=== PATIENT | female | born 1960 | race African-American/Black ===

== ENCOUNTER 2017-03-17 18:05 | Emergency (ER) | payer OTHER ==
[2017-03-17] MEDS ORDERED: Fentanyl 100 MCG/2 ML VIAL ONE (18:47)
[2017-03-17] MEDS ORDERED: Ondansetron HCl/PF 4 MG/2 ML Vial ONE (18:48)
[2017-03-17 19:04] LABS: ALT (SGPT) 12 U/L (0-55); AST (SGOT) 12 U/L (5-34); Albumin 3.4 g/dL (3.5-5.0); Alkaline Phosphatase 54 U/L (40-150); Anion Gap 11 mmol/L (10-20); BUN (Urea Nitrogen) 11 mg/dL (9.8-20.1); Bilirubin, Total 0.9 mg/dL (0.2-1.2); Calc. Creatinine Clearance 0 mL/min (70-130); Calcium 8.4 mg/dL (7.8-10.44); Carbon Dioxide 24 mmol/L (22-29); Chloride 108 mmol/L (98-107); Estimated GFR-MDRD 85; Globulin 2.7 g/dL (2.4-3.5); Glucose 100 mg/dL (70-105); Potassium 3.3 mmol/L (3.5-5.1); Protein, Total 6.1 g/dL (6.0-8.3); Sodium 140 mmol/L (136-145)
[2017-03-17 19:04] LABS: Bilirubin Negative (Negative); Blood, Urine Trace (Negative); Clarity Cloudy (Clear); Glucose, Urine (Dipstick) Negative (Negative); Leukocyte Large (Negative); Nitrite Negative (Negative); Protein, Urine (Dipstick) 30 mg/dL (Neg-Trace); Specific Gravity, Urine 1.015 (1.005-1.030); pH, Urine Greater/Equal 9.0 (5.0-9.0)
[2017-03-17 19:09] LABS: Hemoglobin 12.9 g/dL (12.0-16.0); Hypersemented Neutrophil SLIGHT; Lymphocytes 17 % (21-51); MDiff Complete? YES; Mean Corpuscular HGB CONC 31.9 g/dL (32.0-36.0); Mean Corpuscular Volume 94.2 fl (81.0-99.0); Mean Platelet Volume 9.4 fL (7.4-10.4); Monocytes 5 % (0-10); Neutrophil 78 % (42-75); Platelet Count 198 thou/uL (130-400); RBC Distribution Width 12.7 % (11.5-14.5); Red Blood Cell (RBC) Count 4.28 mill/uL (4.20-5.40); White Blood Cell (WBC) Count 14.2 thou/uL (4.8-10.8)
[2017-03-17 19:12] LABS: Bacteria/HPF 2+ HPF (None Seen); Crystals/HPF None Seen HPF (Negative); Hyaline Casts/LPF NONE SEEN LPF (0-3 Hyaline); Other Casts/LPF None Seen LPF (0-3 Hyaline); Oval Fat Bodies/HPF None Seen HPF (None Seen); RBC/HPF 0-3 HPF (0-3); Renal Epithelial None Seen HPF (0-3); Sperm/HPF None Seen HPF (None Seen); Squamous Epithelial None Seen HPF (0-3); Transitional Epithelial NONE SEEN HPF (0-3); Trichomonas/HPF None Seen HPF (None Seen); WBC/HPF 21-50 HPF (0-3); Yeast-All Forms None Seen HPF (None Seen)
[2017-03-17] MEDS ORDERED: cefTRIAXone\\ROCEPHIN 1 GM VIAL ONE (19:18)
--- NOTE | 2017-03-17 19:25 | CT ---
CT ABDOMEN AND PELVIS WITHOUT CONTRAST 03/17/[address] of the abdomen and pelvis was performed for evaluation of generalized flank pain. Axial sl ices were acquired, then coronal reconstructions were done. No oral or IV contrast was given. The lung bases are clear. The liver is slightly generous in size but no internal abnormalities were seen. The spleen, pancreas, adrenal gland and aorta were unremarkable within the limitations of a no ncontrast study. The gallbladder wall does not seem thick. On a few images, I would wonder if there was a tiny bright deisy in it, but not enough that I could confidently diagnose gallstones. An ultra sound would be more sensitive. 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 This makes it look larger than it is, though it still seems la rger than it should be. I would recommend checking the patient's urine to consider the possibility o f pyelonephritis. There was no significant stranding around this kidney, however. The left kidney sh owed no focal lesion. No renal obstruction or renal stones were seen. No ureteral calculi were seen. The bowel gas pattern is nonspecific. There are no inflammatory changes appreciated around bowel or cecum. Some nonspecific fluid filled loops of small bowel are present. No free air or free fluid was seen. CT of the pelvis showed no pelvic masses or free fluid. The uterine fundus seems a little bulky such that I cannot exclude fibroids. Ultrasound would be much more sensitive at evaluating this. IMPRESSION: 1. Malrotated right kidney that may be slightly larger than expected. Consider checking her uri ne to rule out pyelonephritis. 2. Nonspecific bowel gas pattern. 3. Borderline hepatic size. 4. Somewhat bulky uterine fundus. 5. Cannot rule out tiny gallstones, but the finding is truly not definite. POS: HOME
[2017-03-17] MEDS ORDERED: Acetaminophen 500 MG TAB ONE (19:27)
== END 2017-03-17 20:46 | disposition home or self-care (01) ==
LOC: BURERS 18:05
DX: N12 Tubulo-interstitial nephritis, not specified as acute or chronic (principal); G89.29 Other chronic pain; E11.9 Type 2 diabetes mellitus without complications; M06.9 Rheumatoid arthritis, unspecified
CPT/HCPCS: 74176; 80053; 81003; 81015; 83605; 85025; 87077; 87086; 87186; 96361; 96365; 96375; J0696; J2405; J3010

== ENCOUNTER 2017-07-26 12:34 | Emergency (ER) | payer OTHER ==
[2017-07-26] MEDS ORDERED: HYDROcodone/Acetaminophen 5/325 mg Tablet ONE (13:30)
--- NOTE | 2017-07-26 15:42 | CT ---
CT OF THE BRAIN WITHOUT CONTRAST 07/26/[address] was performed for evaluation of headache one month following trauma. The ventricles are normal in size with no shift. No intracranial bleeding or extra-axial hematoma wa s seen. No mass, stroke or edema was seen. The calvarium appears intact. The sphenoid sinus and mast oid air cells are clear. IMPRESSION: No acute intracranial findings. POS: HOME
== END 2017-07-26 13:40 | disposition home or self-care (01) ==
LOC: BURERS 12:34
DX: E11.40 Type 2 diabetes mellitus with diabetic neuropathy, unspecified (principal); I10 Essential (primary) hypertension; M06.9 Rheumatoid arthritis, unspecified; Z79.82 Long term (current) use of aspirin; Z79.899 Other long term (current) drug therapy
CPT/HCPCS: 70450

== ENCOUNTER 2017-10-01 07:38 | Emergency (ER) | payer OTHER | END 2017-10-01 08:39 | disposition home or self-care (01) | LOC: BURERS 07:38 | DX: J01.90 Acute sinusitis, unspecified (principal); J20.9 Acute bronchitis, unspecified; I10 Essential (primary) hypertension; E11.40 Type 2 diabetes mellitus with diabetic neuropathy, unspecified; Z79.899 Other long term (current) drug therapy; Z79.82 Long term (current) use of aspirin | CPT/HCPCS: 99283 ==

== ENCOUNTER 2018-04-25 14:06 | Emergency (ER) | payer OTHER ==
[2018-04-25 14:34] LABS: #Basophils 0.1 thou/uL (0.0-0.2); #Eosinphils 0.1 thou/uL (0.0-0.7); #Lymphocytes 3.4 thou/uL (1.20-3.40); #Monocytes 0.6 thou/uL (0.11-0.59); #Neutrophils 4.3 thou/uL (1.40-6.50); %Basophils 1.5 % (0.0-1.0); %Eosinophils 0.9 % (0.0-10.0); %Lymphocytes 40.4 % (21.0-51.0); %Monocytes 6.6 % (0.0-10.0); %Neutrophils 50.6 % (42.0-75.0); Hemoglobin 12.8 g/dL (12.0-16.0); Mean Corpuscular HGB CONC 34.3 g/dL (32.0-36.0); Mean Corpuscular Hemoglobin 29.7 pg (27.0-31.0); Mean Corpuscular Volume 86.4 fl (81.0-99.0); Mean Platelet Volume 7.4 fL (7.4-10.4); Platelet Count 242 thou/uL (130-400); RBC Distribution Width 11.8 % (11.5-14.5); White Blood Cell (WBC) Count 8.4 thou/uL (4.8-10.8)
[2018-04-25 14:51] LABS: Albumin 3.6 g/dL (3.5-5.0); Globulin 2.5 g/dL (2.4-3.5); Protein, Total 6.1 g/dL (6.0-8.3)
[2018-04-25 14:53] LABS: Troponin I Less than 0.010 ng/mL (< 0.028)
[2018-04-25 14:55] LABS: Potassium 2.9 mmol/L (3.5-5.1)
[2018-04-25] MEDS ORDERED: Potassium Chloride 20 MEQ TAB ONE (15:01)
--- NOTE | 2018-04-25 16:57 | RAD ---
PORTABLE CHEST: Date: 04/25/18 An AP portable film at 1412 hours is compared with the 08/12/16 study. FINDINGS: The heart is stable in size and appears normal. There is no infiltrate, effusion, or vascular congest ion. The lungs are clear. Trachea is midline. IMPRESSION: No acute thoracic finding. POS: HOME
== END 2018-04-25 15:12 | disposition home or self-care (01) ==
LOC: BURERS 14:06
DX: F43.0 Acute stress reaction (principal); E87.6 Hypokalemia; R07.89 Other chest pain; I10 Essential (primary) hypertension; M06.9 Rheumatoid arthritis, unspecified; E11.40 Type 2 diabetes mellitus with diabetic neuropathy, unspecified; Z79.52 Long term (current) use of systemic steroids; Z79.82 Long term (current) use of aspirin; Z79.899 Other long term (current) drug therapy; Z79.891 Long term (current) use of opiate analgesic
CPT/HCPCS: 36415; 71045; 80053; 82553; 83690; 83880; 84484; 85025; 93005; 94760

== ENCOUNTER 2018-06-21 11:30 | Emergency (ER) | payer OTHER ==
[2018-06-21] MEDS ORDERED: traMADol HCl 50 MG TAB ONE (11:50)
[2018-06-21] MEDS ORDERED: Amoxicillin/Potassium Clav 875 MG TAB ONE (11:50)
== END 2018-06-21 12:02 | disposition home or self-care (01) ==
LOC: BURERS 11:30
DX: J01.90 Acute sinusitis, unspecified (principal); I10 Essential (primary) hypertension; E11.40 Type 2 diabetes mellitus with diabetic neuropathy, unspecified; Z79.82 Long term (current) use of aspirin; Z79.899 Other long term (current) drug therapy
CPT/HCPCS: 99283

== ENCOUNTER 2019-01-18 17:06 | Emergency (ER) | payer OTHER ==
[2019-01-18] MEDS ORDERED: traMADol HCl 50 MG TAB ONE (18:07)
--- NOTE | 2019-01-18 20:09 | RAD ---
LEFT SHOULDER THREE VIEWS: 01/18/19 No fracture, dislocation, or AC joint widening was seen. There is no periarticular calcification. IMPRESSION: No acute finding. POS: HOME
== END 2019-01-18 18:10 | disposition home or self-care (01) ==
LOC: BURERS 17:06
DX: S43.422A Sprain of left rotator cuff capsule, initial encounter (principal); E11.40 Type 2 diabetes mellitus with diabetic neuropathy, unspecified; I10 Essential (primary) hypertension; Z79.899 Other long term (current) drug therapy; Z79.82 Long term (current) use of aspirin; X50.9XXA Other and unspecified overexertion or strenuous movements or postures, initial encounter

== ENCOUNTER 2019-03-23 13:04 | Emergency (ER) | payer OTHER ==
[2019-03-23] MEDS ORDERED: predniSONE 20 MG TAB ONE (13:24)
[2019-03-23 13:39] LABS: #Eosinphils 0.1 thou/uL (0.0-0.7); #Lymphocytes 1.7 thou/uL (1.20-3.40); #Monocytes 0.3 thou/uL (0.11-0.59); #Neutrophils 2.5 thou/uL (1.40-6.50); %Basophils 0.9 % (0.0-1.0); %Lymphocytes 36.7 % (21.0-51.0); %Monocytes 6.3 % (0.0-10.0); %Neutrophils 54.2 % (42.0-75.0); Hemoglobin 13.2 g/dL (12.0-16.0); Mean Corpuscular HGB CONC 31.1 g/dL (32.0-36.0); Mean Corpuscular Hemoglobin 29.6 pg (27.0-31.0); Mean Platelet Volume 8.2 fL (7.4-10.4); Platelet Count 215 thou/uL (130-400); RBC Distribution Width 12.4 % (11.5-14.5); Red Blood Cell (RBC) Count 4.47 mill/uL (4.20-5.40); White Blood Cell (WBC) Count 4.5 thou/uL (4.8-10.8)
[2019-03-23 13:52] LABS: Clarity Cloudy (Clear); Glucose, Urine (Dipstick) Negative (Negative); Leukocyte Moderate (Negative); Nitrite Negative (Negative); Protein, Urine (Dipstick) Negative (Neg-Trace); Urobilinogen 0.2 mg/dL (0.2-1.0); pH, Urine 6.5 (5.0-9.0)
[2019-03-23 13:53] LABS: Bacteria/HPF 2+ HPF (None Seen); Bilirubin Negative (Negative); Blood, Urine Trace (Negative); RBC/HPF 0-3 HPF (0-3); Squamous Epithelial 0-3 HPF (0-3)
[2019-03-23 13:54] LABS: ALT (SGPT) 9 U/L (8-55); AST (SGOT) 12 U/L (5-34); Albumin 3.8 g/dL (3.5-5.0); Alkaline Phosphatase 66 U/L (40-150); Anion Gap 9 mmol/L (10-20); BUN (Urea Nitrogen) 14 mg/dL (9.8-20.1); Bilirubin, Total 0.2 mg/dL (0.2-1.2); Calc. Creatinine Clearance 0 mL/min (70-130); Calcium 9.7 mg/dL (7.8-10.44); Carbon Dioxide 31 mmol/L (22-29); Chloride 105 mmol/L (98-107); Estimated GFR-MDRD 79; Globulin 2.7 g/dL (2.4-3.5); Glucose 89 mg/dL (70-105); Potassium 3.6 mmol/L (3.5-5.1); Protein, Total 6.5 g/dL (6.0-8.3); Sodium 141 mmol/L (136-145)
== END 2019-03-23 14:15 | disposition home or self-care (01) ==
LOC: BURERS 13:04
DX: N39.0 Urinary tract infection, site not specified (principal); E11.9 Type 2 diabetes mellitus without complications; I10 Essential (primary) hypertension; Z79.899 Other long term (current) drug therapy; Z79.82 Long term (current) use of aspirin
CPT/HCPCS: 36415; 80053; 81003; 81015; 83605; 84443; 85025; 87804; 99283; J7512

== ENCOUNTER 2019-07-05 13:29 | Emergency (ER) | payer OTHER | END 2019-07-05 13:42 | disposition home or self-care (01) | LOC: BURERS 13:29 | DX: J06.9 Acute upper respiratory infection, unspecified (principal); E11.9 Type 2 diabetes mellitus without complications; I10 Essential (primary) hypertension; Z79.899 Other long term (current) drug therapy; Z79.82 Long term (current) use of aspirin | CPT/HCPCS: 99281 ==

== ENCOUNTER 2019-12-14 12:17 | Observation (INO) | payer OTHER ==
[2019-12-14] MEDS ORDERED: Morphine 4 MG/ML VIAL ONE ×2 (12:43→14:54)
[2019-12-14 12:55] LABS: Hemoglobin 13.3 g/dL (12.0-16.0); Mean Corpuscular HGB CONC 31.7 g/dL (32.0-36.0); Mean Corpuscular Hemoglobin 30.5 pg (27.0-31.0); Mean Corpuscular Volume 96.2 fL (78.0-98.0); Mean Platelet Volume 8.8 fL (7.4-10.4); Platelet Count 218 thou/uL (130-400); RBC Distribution Width 12.8 % (11.5-14.5); Red Blood Cell (RBC) Count 4.36 mill/uL (4.20-5.40); White Blood Cell (WBC) Count 9.3 thou/uL (4.8-10.8)
[2019-12-14 13:05] LABS: ALT (SGPT) 28 U/L (8-55); AST (SGOT) 53 U/L (5-34); Albumin 4.1 g/dL (3.5-5.0); Alkaline Phosphatase 71 U/L (40-110); Anion Gap 14 mmol/L (10-20); BUN (Urea Nitrogen) 12 mg/dL (9.8-20.1); Bilirubin, Total 0.5 mg/dL (0.2-1.2); Calc. Creatinine Clearance 0 mL/min (70-130); Calcium 8.9 mg/dL (7.8-10.44); Carbon Dioxide 24 mmol/L (22-29); Chloride 107 mmol/L (98-107); Estimated GFR-MDRD Greater than 90; Globulin 2.9 g/dL (2.4-3.5); Glucose 107 mg/dL (70-105); Lipase 23 U/L (8-78); Sodium 142 mmol/L (136-145)
[2019-12-14 13:08] LABS: Potassium 2.8 mmol/L (3.5-5.1)
[2019-12-14 13:15] LABS: Band 14 % (5-11); Eosinophils 2 % (0-10); Lymphocytes 13 % (21-51); MDiff Complete? YES; Monocytes 1 % (0-10); Neutrophil 70 % (42-75)
[2019-12-14 13:27] LABS: Bilirubin Negative (Negative); Blood, Urine Trace (Negative); Glucose, Urine (Dipstick) Negative (Negative); Leukocyte Small (Negative); Nitrite Negative (Negative); Protein, Urine (Dipstick) Negative (Neg-Trace)
[2019-12-14 13:29] LABS: Clarity Hazy (Clear); RBC/HPF 0-3 HPF (0-3)
[2019-12-14 13:30] LABS: Bacteria/HPF Rare-Few HPF (None Seen); Mucous/LPF Few LPF (<2+); Squamous Epithelial 0-3 HPF (0-3)
[2019-12-14] MEDS ORDERED: Potassium Chloride 20 MEQ TAB ONE (14:04)
[2019-12-14] MEDS ORDERED: Potassium Chloride 20 MEQ/100 ML PREMIX BAG ONE (14:16)
[2019-12-14] MEDS ORDERED: Iopamidol 370 76% 100 ML VIAL ONE (15:17)
[2019-12-14 15:42] VITALS: BMI 29.2
--- NOTE | 2019-12-14 16:47 | RAD ---
PORTABLE CHEST: 12/14/19 An AP portable film at 1245 is compared with a 04/25/18 study. There has been no adverse interval change. The heart is normal in size and the lungs are clear. No in filtrate or effusion is seen. The trachea is midline. IMPRESSION: No acute thoracic findings. POS: HOME
--- NOTE | 2019-12-14 17:00 | CT ---
CT ABDOMEN AND PELVIS WITH CONTRAST 12/14/19 COMPARISON: Comparison is made with a prior CT exam of 03/17/17. The lung bases are clear. No infiltrate or effusion was seen. There is a small 4 mm noncalcified nodu le most likely in the posterior part of the right middle lobe. Looking back at the 2017 CT, the top m ost slice appears to show it, but on that CT could not tell if it was the end of a vessel or tiny nod ule. At any rate, it has not changed in size or appearance over time. The most prudent course of acti on would be to repeat the CT in one year that covers the entire chest. The liver, spleen and pancreas showed no acute findings. No gross calcifications were seen in the ga llbladder. There was a little increase density in the neck of the gallbladder but not enough to call a stone. If clinical findings point this way, an elective ultrasound could remove all doubt, but the current scan does not show definitive signs of stones. There is no adrenal mass. The right kidney i s malrotated, but there is no renal mass or hydronephrosis. The abdominal aorta is normal in caliber throughout. Fluid filled loops of distal small bowel and cecum are apparent. There are only minimally distended. The cecal diameter was 6.1 cm and the maximal small bowel diameter was 2.5 cm. There is no wall thick ening. The pattern is more suggestive of an ileus, such as what one might see in enteritis, as oppose d to an obstruction. No free air or free fluid was detected. A small fat filled umbilical hernia is p resent. CT of the pelvis shows no pelvic masses, fluid collections, or inflammatory changes. There is some mi ld gaseous distention of the rectal region. The lumbar spine shows degenerative change, particularly in the lower levels. IMPRESSION: 1. Fluid filled loops of distal small bowel and cecum with minor distention and no wall thickeni ng. Consider the possibility of enteritis or similar entities. 2. Malrotation of the right kidney, of no concern. 3. Small 4 mm noncalcified nodule in the posterior part of the right middle lobe. Most likely pr esent on a 2017 scan. Level of suspicion is low. A follow-up CT scan of the lung in one year would be recommended. POS: HOME
[2019-12-14] MEDS ORDERED: HYDROcodone/Acetaminophen 5/325 mg Tablet PO PRN (17:10)
[2019-12-14] MEDS ORDERED: Ondansetron PF 4 MG/2 ML Vial SLOW IVP PRN (17:10)
[2019-12-14] MEDS ORDERED: Ondansetron ODT 4 MG TAB PO PRN (17:10)
[2019-12-14] MEDS ORDERED: Dextrose 5% in Water 1,000 ML IV PRN (20:07)
[2019-12-14] MEDS ORDERED: Dextrose 50% Abboject 50 ML SYRINGE SLOW IVP PRN (20:07)
[2019-12-14] MEDS ORDERED: HumaLOG 300 UNITS/3 ML VIAL SC PRN ×2 (20:07)
[2019-12-14] MEDS ORDERED: Doxepin HCl 25 MG CAP PO SCH (21:00)
[2019-12-14] MEDS ORDERED: Atorvastatin Calcium 10 MG TAB PO SCH (21:00)
[2019-12-14] MEDS: Famotidine 20 MG TAB PO SCH (21:35)
[2019-12-14] MEDS: 1/2 NS w/KCL 20 mEq 1,000 ML IV SCH (21:36)
[2019-12-14] MEDS: azaTHIOprine 50 MG TAB PO SCH (21:36)
[2019-12-15] MEDS: Guaifenesin DM 100-10/5 ML UDCUP PO PRN ×3 (04:05→16:51)
[2019-12-15 06:36] LABS: #Basophils 0.1 thou/uL (0.0-0.2); #Eosinphils 0.4 thou/uL (0.0-0.7); #Lymphocytes 1.6 thou/uL (1.20-3.40); #Monocytes 0.4 thou/uL (0.11-0.59); #Neutrophils 2.7 thou/uL (1.40-6.50); %Eosinophils 8.2 % (0.0-10.0); %Lymphocytes 30.7 % (21.0-51.0); %Monocytes 7.1 % (0.0-10.0); Hemoglobin 11.7 g/dL (12.0-16.0); Mean Corpuscular HGB CONC 30.2 g/dL (32.0-36.0); Mean Corpuscular Hemoglobin 28.8 pg (27.0-31.0); Mean Corpuscular Volume 95.4 fL (78.0-98.0); Mean Platelet Volume 7.8 fL (7.4-10.4); Platelet Count 228 thou/uL (130-400); Red Blood Cell (RBC) Count 4.06 mill/uL (4.20-5.40); White Blood Cell (WBC) Count 5.2 thou/uL (4.8-10.8)
[2019-12-15 06:52] LABS: ALT (SGPT) 35 U/L (8-55); AST (SGOT) 34 U/L (5-34); Albumin 3.4 g/dL (3.5-5.0); Alkaline Phosphatase 73 U/L (40-110); Anion Gap 11 mmol/L (10-20); BUN (Urea Nitrogen) 6 mg/dL (9.8-20.1); Bilirubin, Total 0.6 mg/dL (0.2-1.2); Calc. Creatinine Clearance 96 mL/min (70-130); Calcium 8.4 mg/dL (7.8-10.44); Carbon Dioxide 23 mmol/L (22-29); Chloride 109 mmol/L (98-107); Estimated GFR-MDRD Greater than 90; Globulin 2.3 g/dL (2.4-3.5); Glucose 134 mg/dL (70-105); Potassium 3.7 mmol/L (3.5-5.1); Protein, Total 5.7 g/dL (6.0-8.3); Sodium 139 mmol/L (136-145)
[2019-12-15] MEDS ORDERED: predniSONE 20 MG TAB PO SCH ×2 (08:00)
[2019-12-15] MEDS: 1/2 NS w/KCL 20 mEq 1,000 ML IV SCH (08:13)
[2019-12-15] MEDS ORDERED: Aspirin 81 mg Enteric Coated Tablet PO SCH (09:00)
[2019-12-15] MEDS ORDERED: Lisinopril 10 MG TAB PO SCH (09:00)
[2019-12-15] MEDS: azaTHIOprine 50 MG TAB PO SCH ×3 (10:15→16:49)
[2019-12-15] MEDS: Famotidine 20 MG TAB PO SCH (10:15)
--- NOTE | 2019-12-15 11:54 | RAD ---
CHEST TWO VIEWS: 12/15/2019 COMPARISON: 12/14/2019 FINDINGS: There has been no adverse interval change. The heart is normal in size and the lungs are clear. There is no sign of pneumonia, infiltrate or effusion. The mediastinum showed no acute change. IMPRESSION: No acute thoracic findings. POS: HOME
[2019-12-15 18:48] VITALS: BP 115/76; TEMP 98.7
--- NOTE | 2019-12-16 00:24 | HP ---
CHIEF COMPLAINT: Vomiting and diarrhea. HISTORY OF THE PRESENT ILLNESS: Ms. Wright is a 59-year-old female, followed by Dr. 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 The patient reports she started with copious diarrhea of several episodes on the morning prior to her admission. This morning, this was continuing along with vomiting of nonbilious, nonbloody emesis. She was unable to tolerate oral. She then had a fever of 100.1 at home. In the emergency department, she was found to have severe hypokalemia and continued intolerance to p.o. intake. The patient was therefore admitted for intractable nausea and vomiting and hypokalemia with suspected acute viral gastroenteritis. The patient denies any recent travel or sick contacts. Of note, the patient also reports a chronic persistent cough for about the last four weeks without any sinus pressure, but a feeling of ear discomfort. She says initially she was able to expectorate some sputum, but now this has resolved to a dry cough. She does have some hoarseness to her voice, but says that this is chronic. She has had no shortness of breath or wheezing and has been apparently intolerant to nebulizer treatments in the past, which caused her to be hyper and jittery. She denies hemoptysis. PAST MEDICAL HISTORY: 1. Sanjuanita granulomatosis diagnosed in 2011. 2. Hypertension. 3. Hyperlipidemia. 4. Steroid-induced diabetes. 5. Rheumatoid arthritis. 6. Neuropathy. PAST SURGICAL HISTORY: . SOCIAL HISTORY: Denies alcohol, drugs, or tobacco use. MEDICATIONS: 1. Azathioprine 50 mg q.i.d. 2. Lisinopril 10 mg once daily. 3. Atorvastatin 20 mg p.o. q.p.m. 4. Aspirin 81 mg daily. 5. Doxepin 50 mg oral once a day at bedtime. 6. Tramadol 50 mg t.i.d. p.r.n. 7. Waka 10/325 one p.o. q.6 hours p.r.n. 8. Prednisone 10 mg daily. Reports that she has recently been able to wean down from 20 mg. ALLERGIES: DIPHENHYDRAMINE. FAMILY HISTORY: Noncontributory. REVIEW OF SYSTEMS: GENERAL: Low-grade fever, less than 100.4 at home. Positive malaise. Denies myalgias. Denies weakness. HEENT: As per HPI. Denies ear pain. Intermittent decreased hearing, that is new. Denies sore throat. Positive dry cough. Positive postnasal drip. CARDIOVASCULAR: Denies chest pain, palpitations, orthopnea, or PND. RESPIRATORY: Denies hemoptysis, wheezing, dyspnea on exertion, or shortness of breath. GASTROINTESTINAL: Has had generalized abdominal soreness but no focal pain. Positive nausea and vomiting. No hematemesis, no melena or hematochezia. Positive diarrhea without mucus. GENITOURINARY: Decreased urination over the last 24 hours, but denies dysuria or gross hematuria. LYMPHATIC: Denies any lymphadenopathy or lower extremity edema. HEMATOLOGIC: Denies any bleeding or easy bruising. PSYCHIATRIC: Denies depression or anxiety. PHYSICAL EXAMINATION: VITAL SIGNS: Presenting vitals to the emergency room; blood pressure 136/72, pulse 66, respirations 18, temperature 98.1, and 100% O2 saturation on room air. At my exam; temperature 98.9, pulse 86, respirations 20, 97% on room air, and blood pressure 134/86. GENERAL: Well-developed, well-nourished, female, alert and in no acute distress. Nontoxic appearing. HEENT: Normocephalic, atraumatic. Pupils are equal, round, reactive to light and accommodation, extraocular muscles intact. Nares are patent without discharge. Tongue protrudes in the midline. NECK: Supple without lymphadenopathy, thyromegaly, JVD, or bruit. HEART: Regular rate and rhythm with normal S1 and S2. No murmurs, clicks, rubs , or gallops. LUNGS: With good air entry throughout. No wheezes. Coarse rhonchi, left base. No increased work of breathing. ABDOMEN: Soft, positive bowel sounds in all 4 quadrants. Slightly tender at the epigastrium. No guarding or rebound tenderness. EXTREMITIES: No cyanosis, clubbing, or edema. NEUROLOGIC: Cranial nerves 2 through 12 grossly intact. No focal deficits. LABORATORY DATA: White count 9.3 with 70% neutrophils, 14 bands, 13 lymphocytes , hemoglobin 13.3, hematocrit 41.9, and platelets 218. Sodium 142, potassium 2.8, chloride 107, bicarb 24, BUN 12, creatinine 0.73, glucose 107, calcium 8.9, T bilirubin 0.5, AST 53, ALT 28, and alkaline phosphatase 71. B type natriuretic peptide less than 0.010 and magnesium 1.9. Urine significant for trace blood with 0 to 3 rbc's, small LE, and 7 to 10 wbc's and rare bacteria. Influenza A and B are negative. IMAGIN. Chest x-ray shows no acute findings. 2. Abdomen and pelvis CT shows fluid-filled loops of distal small bowel and cecum with moderate distention and no wall thickening. Possibility of enteritis or similar entities. Malrotation of the right kidney of no concern. Small 4 mm noncalcified nodule in the posterior part of the right middle lobe. Most likely present on a 2017 scan. Level of suspicion is low. A followup CT scan of the lung in one year will be recommended. ASSESSMENT AND PLAN: 1. Acute gastroenteritis, suspect viral etiology. We will give antiemetics and a full liquid diet as well as IV fluids. 2. Hypokalemia. The patient was given 20 mEq of potassium in the ER via IV and a 40 mEq oral dose. The patient will be started on half-normal saline with 20 mEq of potassium at 100 an hour overnight. We will repeat her metabolic profile in the morning. 3. Sanjuanita granulomatosis and rheumatoid arthritis. The patient will be continued on her azathioprine and prednisone. 4. Hypertension. The patient will be continued on her lisinopril and aspirin. 5. Hyperlipidemia. The patient will be continued on her atorvastatin. 6. Neuropathy. The patient will be continued on her doxepin and hydrocodone. We will hold tramadol while hospitalized. 7. Steroid-induced diabetes. We will get Accu-Cheks q.a.c. and at bedtime with a mild and bedtime lispro correction algorithm. 8. Prophylaxis. We will give Pepcid. I expect a short hospital stay, so SCDs have not been placed at this time. The patient is currently ambulatory. 9. Code status. Full code. Job ID: [id number] MTDD
--- NOTE | 2019-12-16 02:23 | DIS ---
DATE OF ADMISSION: 12/14/2019 DATE OF DISCHARGE: 12/15/2019 DIAGNOSES: 1. Acute gastroenteritis, viral etiology suspected. 2. Hypokalemia, resolved due to gastrointestinal losses. 3. Subacute cough, suspected from postnasal drip and possible allergic rhinitis. 4. Steroid-induced diabetes, controlled. 5. Sanjuanita granulomatosis. 6. Rheumatoid arthritis. 7. Hypertension. 8. Hyperlipidemia. 9. Neuropathic pain. PROCEDURES: 1. Influenza A and B negative. Chest x-ray from the day of admission with no acute findings. Repeat on the day following admission, no acute findings. 2. Abdomen and pelvis CT with fluid-filled loops of distal small bowel and cecum with minor distention and no wall thickening, possibility of enteritis or similar entities. Malrotation of the right kidney of no concern. Small 4 mm noncalcified nodule in the posterior part of the right middle lobe that might be chronic. Followup CT in one year is suggested. 3. Significant labs; potassium 2.8 on admission and 3.7 on the date of discharge. AST 53 on admission, down to 34 on discharge. White count on date of admission 9.3 with 70% neutrophils, 14% bands, and 13% lymphocytes, and repeat on the date of discharge 5.2 with 53% neutrophils and 31% lymphocytes. OBSERVATION COURSE: Ms. Wright is a 59-year-old female, who came in with symptoms of diarrhea and intractable nausea and vomiting. She was given antiemetics, which were effective. She was able to tolerate oral intake well by the end of her discharge. She was given IV fluids with potassium to correct her hypokalemia in addition to a small dose of potassium IV and oral in the emergency room. She will be given another three days of this as an outpatient and recommended to recheck a basic metabolic profile with her primary care doctor this week. Since her GI symptoms have resolved, expect her hypokalemia to stay resolved as well. She will have antiemetics called in to continue at discharge and will be instructed a bland diet with frequent sips of fluids and rest. The patient also had what was reported as a subacute four-week cough. Her chest imaging was negative for acute findings during her hospitalization. She did have significant retraction of her tympanic membranes on examination and erythematous boggy turbinates. The remainder of her ENT exam was unremarkable and it is thought that she perhaps may have allergic rhinitis component in postnasal drip that is causing the cough. We will give her Tessalon for what is felt to be upper respiratory source of her cough along with fluticasone two sprays per nostril to calm any allergic or inflammatory component. She does not have any facial sinus pressure , and I do not feel antibiotics are warranted at this time in light of her gastrointestinal symptoms. The patient has a history of steroid induced diabetes and we have checked her Accu-Cheks while hospitalized and she has required no corrective insulin as these have been well controlled. The patient has a history of Sanjuanita granulomatosis and rheumatoid arthritis, for which her chronic medications were continued during her hospitalization and has not been changed upon her discharge. DISPOSITION: Discharged to home. CONDITION: Good. MEDICATIONS: 1. Aspirin 81 mg p.o. daily. 2. Atorvastatin 20 mg p.o. at bedtime. 3. Azathioprine 50 mg p.o. q.i.d. 4. Doxepin 50 mg p.o. at bedtime. 5. Robitussin DM OTC 10 mL p.o. q.6 hours p.r.n. cough. 6. Hydrocodone 10/325 p.o. q.6 hours p.r.n. pain. 7. Zestril 10 mg p.o. daily. 8. Ondansetron ODT 4 mg p.o. q.6 hours p.r.n. nausea or vomiting. 9. Potassium chloride 20 mEq p.o. daily x3 days. 10. Prednisone 10 mg p.o. q.a.m. 11. Fluticasone two sprays each naris daily. 12. Tessalon 100 mg p.o. t.i.d. p.r.n. cough. DISCHARGE INSTRUCTIONS: Follow up with primary care physician, Dr. Elizabeth Suarez within 72 hours of discharge. Recommended a repeat basic metabolic profile and determine if followup warranted for right middle lobe nodule seen on CT scan going forward, recommended repeat scanning in one year per our radiologist. Job ID: [id number] MTDD
== END 2019-12-15 19:30 | disposition home or self-care (01) ==
LOC: BURERS 12:17 → BURMED 14:44 → UNDOADMOB 14:44 → UNDODISOB 12-15 19:30
PROVIDERS: ADMIT Family Medicine; ATTEND Family Medicine
DX: K52.9 Noninfective gastroenteritis and colitis, unspecified (principal); E87.6 Hypokalemia; E09.40 Drug or chemical induced diabetes mellitus with neurological complications with diabetic neuropathy, unspecified; I10 Essential (primary) hypertension; E78.5 Hyperlipidemia, unspecified; M31.30 Wegener's granulomatosis without renal involvement; M06.9 Rheumatoid arthritis, unspecified; Z79.82 Long term (current) use of aspirin; Z79.899 Other long term (current) drug therapy; Z88.8 Allergy status to other drugs, medicaments and biological substances
CPT/HCPCS: 36415; 36416; 71045; 71046; 74177; 80053; 81003; 81015; 83690; 83735; 83880; 84484; 85025; 87804; 93005; 96361; 96365; 96375; 96376; G0378; J2270; J3480; J7500; J7512; Q9967

== ENCOUNTER 2021-12-14 11:23 | Emergency (ER) | payer OTHER ==
[2021-12-14] MEDS ORDERED: Aspirin Chewable 81 MG TAB ONE (12:02)
[2021-12-14] MEDS ORDERED: Nitroglycerin 0.4 MG TAB 1 EACH ONE (12:02)
[2021-12-14 12:06] LABS: #Basophils 0.1 thou/uL (0.0-0.2); #Eosinphils 0.2 thou/uL (0.0-0.7); #Lymphocytes 1.4 thou/uL (1.20-3.40); #Monocytes 0.3 thou/uL (0.11-0.59); %Basophils 1.1 % (0.0-1.0); %Lymphocytes 27.9 % (21.0-51.0); %Monocytes 6.2 % (0.0-10.0); %Neutrophils 60.9 % (42.0-75.0); Hemoglobin 12.8 g/dL (12.0-16.0); Mean Corpuscular HGB CONC 32.8 g/dL (32.0-36.0); Mean Corpuscular Hemoglobin 30.8 pg (27.0-31.0); Mean Corpuscular Volume 93.9 fL (78.0-98.0); Platelet Count 269 thou/uL (130-400); RBC Distribution Width 12.8 % (11.5-14.5); Red Blood Cell (RBC) Count 4.16 mill/uL (4.20-5.40)
[2021-12-14 12:20] LABS: ALT (SGPT) 11 U/L (8-55); AST (SGOT) 12 U/L (5-34); Albumin 3.7 g/dL (3.4-4.8); Alkaline Phosphatase 62 U/L (40-110); Anion Gap 9 mmol/L (10-20); BUN (Urea Nitrogen) 13 mg/dL (9.8-20.1); Bilirubin, Total 0.3 mg/dL (0.2-1.2); Calc. Creatinine Clearance 0 mL/min (70-130); Carbon Dioxide 25 mmol/L (23-31); Chloride 109 mmol/L (98-107); Globulin 2.5 g/dL (2.4-3.5); Glucose 86 mg/dL (80-115); Lipase 22 U/L (8-78); Potassium 3.4 mmol/L (3.5-5.1); Protein, Total 6.2 g/dL (5.8-8.1); Sodium 140 mmol/L (136-145)
== END 2021-12-14 14:02 | disposition home or self-care (01) ==
LOC: BURERS 11:23
DX: R07.89 Other chest pain (principal); E11.9 Type 2 diabetes mellitus without complications; I10 Essential (primary) hypertension
CPT/HCPCS: 36415; 71045; 80053; 83690; 84484; 85025; 85379; 93005

== ENCOUNTER 2022-09-13 08:03 | Emergency (ER) | payer OTHER ==
[2022-09-13] MEDS ORDERED: traMADol HCl 50 MG TAB ONE (08:33)
[2022-09-13] MEDS ORDERED: predniSONE 20 MG TAB ONE (08:34)
== END 2022-09-13 08:47 | disposition home or self-care (01) ==
LOC: BURERS 08:03
DX: S23.3XXA Sprain of ligaments of thoracic spine, initial encounter (principal); S29.012A Strain of muscle and tendon of back wall of thorax, initial encounter; I10 Essential (primary) hypertension; E11.21 Type 2 diabetes mellitus with diabetic nephropathy; M06.9 Rheumatoid arthritis, unspecified; X58.XXXA Exposure to other specified factors, initial encounter
CPT/HCPCS: 99283; J7512